=== PATIENT | female | born 1970 ===

== ENCOUNTER 2017-06-12 11:12 | Emergency (ER) | payer OTHER ==
--- NOTE | 2017-06-12 11:38 | C.PDOC ---
History Of Present Illness 47-year-old female with PMHx of sciatica presents to the ED for evaluation of right flank pain which began last night. Patient states her pain radiates to her RUQ and RLQ, and is associated with nausea and decreased appetite. She also reports chills. Patient states she initially suspected her symptoms were caused by sciatica, and took Flexeril but found no relief. Otherwise, she denies fever , vomiting, dyrusia, hematuria. Time Seen by Provider: 06/12/17 11:34 Chief Complaint (Nursing): Abdominal Pain History Per: Patient History/Exam Limitations: no limitations Onset/Duration Of Symptoms: Hrs Current Symptoms Are (Timing): Still Present Severity: Severe Radiation Of Pain To:: Flank (right) Quality Of Discomfort: "Pain" Associated Symptoms: Chills, Nausea. denies: Fever, Vomiting, Diarrhea, Urinary Symptoms (dysuria, hematuria ) Last Bowel Movement: Yesterday Additional History Per: Patient Abnormal Vaginal Bleeding: No Past Medical History Reviewed: Historical Data, Nursing Documentation, Vital Signs Vital Signs: Last Vital Signs Temp 97.7 F 06/12/17 13:30 Pulse 63 06/12/17 13:30 Resp 17 06/12/17 13:30 BP 125/83 06/12/17 13:30 Pulse Ox 98 06/12/17 14:05 - Medical History PMH: Hypercholesterolemia, Hypothyroidism, Migraine, Seizures Surgical History: No Surg Hx Family History: States: Unknown Family Hx Review Of Systems Constitutional: Positive for: Chills Respiratory: Positive for: Cough. Negative for: Shortness of Breath Gastrointestinal: Positive for: Nausea. Negative for: Vomiting, Diarrhea Genitourinary: Negative for: Dysuria, Hematuria Musculoskeletal: Positive for: Other (right flank pain ) Physical Exam - Physical Exam Appears: Non-toxic, No Acute Distress, Other (uncomfortable) Skin: Normal Color, Warm, Dry Head: Atraumatic, Normacephalic Eye(s): bilateral: Normal Inspection, EOMI Nose: Normal Oral Mucosa: Moist Neck: Normal ROM, Supple Chest: Symmetrical, No Deformity, No Tenderness Cardiovascular: Rhythm Regular, No Murmur Respiratory: Normal Breath Sounds, No Rales, No Rhonchi, No Wheezing Gastrointestinal/Abdominal: Soft, Tenderness (mild RUQ) Back: Other (right flank tenderness ) Extremity: Normal ROM, Capillary Refill (less than 2 seconds ) Neurological/Psych: Oriented x3, Normal Speech Gait: Steady ED Course And Treatment - Laboratory Results Result Diagrams: 06/12/17 11:51 06/12/17 11:51 Lab Interpretation: No Acute Changes O2 Sat by Pulse Oximetry: 98 (on RA) Pulse Ox Interpretation: Normal - CT Scan/US CT Abdomen Other Rad Studies (CT/US): Interpreted By Me, Read By Radiologist, Radiology Report Reviewed CT/US Interpretation: PROCEDURE: CT Abdomen and Pelvis with contrast. HISTORY : Abdominal pain. COMPARISON: None. TECHNIQUE: Contrast dose: 100 mL Visipaque. Radiation dose: Total exam DLP = 1106.78 mGy-cm. This CT exam was performed using one or more of the following dose reduction techniques: Automated exposure control, adjustment of the mA and/or kV according to patient size, and/or use of iterative reconstruction technique. FINDINGS: LOWER THORAX : The lung bases are clear. LIVER: The liver is normal in size and there is homogeneous enhancement. No gross lesion or ductal dilatation. GALLBLADDER AND BILE DUCTS: No calcified gallstones. PANCREAS: The pancreas is normal in size and there is homogeneous enhancement. No gross lesion or ductal dilatation. SPLEEN: The spleen is normal in size and there is homogeneous enhancement. ADRENALS: Both adrenal glands are normal in size without discrete nodule. KIDNEYS AND URETERS: Both kidneys are normal in size without hydronephrosis or focal mass. VASCULATURE: No aortic aneurysm. BOWEL: The small bowel loops are normal in caliber. There is large amount of stool in the colon and rectum. No bowel dilatation or obstruction. APPENDIX: Normal appendix. PERITONEUM: There is a small amount of free fluid in the pelvis which may be physiologic. No free air. LYMPH NODES: No enlarged lymph nodes. BLADDER: Unremarkable. REPRODUCTIVE: Unremarkable. BONES: No acute fracture. There is desiccation of the L2-3 disc. OTHER FINDINGS: None. IMPRESSION: No acute abdominal or pelvic abnormality. Constipation. No evidence of bowel obstruction. Medical Decision Making Medical Decision Making: Impression: 47 y/o female with right flank pain radiating to groin Plan: * labs * CT A/P * Morphine IV * Pepcid IV * Toradol IV * IV Fluids * reassess and disposition Progress: labs and CT A/P ordered and reviewed. Patient received Morphine IV, Pepvic IV, Toradol IV, and IV Fluids. CT showed No acute abdominal or pelvic abnormality. Constipation. No evidence of bowel obstruction. On re-evaluation, patient reports pain is improving. She has no fever and abdomen is soft. Vital signs stable. Patient given copy of CT report and labs. Advise patient to follow up with PCP for further evaluation or return to hospital for any worsening symptoms. Disposition Counseled Patient/Family Regarding: Need For Followup, Rx Given - Disposition Referrals: Bunny Wheeler MD [Medical Doctor] - Disposition: HOME/ ROUTINE Disposition Time: 14:00 Condition: STABLE Additional Instructions: Please follow up with your primary doctor for further evaluation Take pain medicine as needed Return to the emergency department at any time if symptoms persist or worsen. Prescriptions: traMADol [Ultram] 50 mg PO Q8 PRN #14 tab PRN Reason: Pain, Severe (8-10) Instructions: Flank Pain (ED) Forms: [employer] (Jamaican) - POA Present On Arrival: None - Clinical Impression Clinical Impression: Flank pain - PA / GATE AGENT / Resident Statement MD/DO has reviewed & agrees with the documentation as recorded. - Scribe Statement The provider has reviewed the documentation as recorded by the Scribe All medical record entries made by the Scribe were at my direction and personally dictated by me. I have reviewed the chart and agree that the record accurately reflects my personal performance of the history, physical exam, medical decision making, and the department course for this patient. I have also personally directed, reviewed, and agree with the discharge instructions and disposition.
[2017-06-12] MEDS ORDERED: Sodium Chloride 0.9% 1,000 ML IV ONE (11:47)
[2017-06-12] MEDS ORDERED: Sodium Chloride 0.9% 1,000 ML ONE (11:57)
[2017-06-12 11:59] LABS: BASO # 0.1 K/uL (0.0-0.2); BASO % 1.2 % (0.0-2.0); EOS # 0.2 K/uL (0.0-0.7); HEMATOCRIT 41.3 % (34.0-47.0); LYMPH # 2.2 K/uL (1.0-4.3); LYMPH % 26.9 % (20.0-40.0); MEAN CELL VOLUME 89.3 fL (81.0-99.0); MEAN CORPUSCULAR HEMOGLOBIN 30.4 pg (27.0-31.0); MEAN CORPUSCULAR HGB CONC 34.1 g/dL (33.0-37.0); MEAN PLATELET VOLUME 7.9 fL (7.2-11.7); MONO # 0.6 K/uL (0.0-0.8); MONO % 7.5 % (0.0-10.0); NRBC % 0.1 % (0.0-2.0); RED CELL DISTRIBUTION WIDTH 12.4 % (11.5-14.5); WHITE BLOOD COUNT 8.1 K/uL (4.8-10.8)
[2017-06-12 12:03] LABS: RBC URINE < 1 /hpf (0-3); URINE BACTERIA RARE (<OCC); URINE BILIRUBIN NEGATIVE (NEGATIVE); URINE BLOOD 1+ (NEGATIVE); URINE COLOR Straw (YELLOW); URINE GLUCOSE (UA) NORMAL (Normal); URINE KETONE NEGATIVE (NEGATIVE); URINE LEUKOCYTE ESTERASE NEG Leu/uL (Negative); URINE PROTEIN NEGATIVE (NEGATIVE); URINE UROBILINOGEN NORMAL mg/dL (0.2-1.0); WBC URINE < 1 /hpf (0-5)
[2017-06-12 12:11] LABS: CHLORIDE 98 mmol/L (98-107); POTASSIUM 3.9 mmol/L (3.6-5.2); SODIUM 138 mmol/L (132-148)
[2017-06-12 12:13] LABS: GFR AFRICAN-AMERICAN > 60
[2017-06-12 12:14] LABS: ALB/GLOB RATIO 1.1 (1.0-2.1); ALKALINE PHOSPHATASE 71 U/L (38-126); ALT/SGPT 24 U/L (9-52); AST/SGOT 17 U/L (14-36); BILIRUBIN,TOTAL 0.5 mg/dL (0.2-1.3); BLOOD UREA NITROGEN 9 mg/dL (7-17); CALCIUM 9.4 mg/dl (8.6-10.4); CARBON DIOXIDE 28 mmol/L (22-30); GLUCOSE,RANDOM 77 mg/dL (65-105); TOTAL PROTEIN 7.7 g/dL (6.3-8.3)
[2017-06-12] MEDS ORDERED: Iodixanol 320 MG/ML 100 ML BOTTLE IV ONE (12:29)
[2017-06-12 13:31] VITALS: BP 125/83; PULSE 63; RESP 17; TEMP 97.7
[2017-06-12] MEDS ORDERED: Morphine 4 MG/ML VIAL ONE (13:33)
[2017-06-12 13:36] VITALS: O2SAT 98
--- NOTE | 2017-06-12 13:48 | CT ---
PROCEDURE: CT Abdomen and Pelvis with contrast HISTORY: Abdominal pain COMPARISON: None. TECHNIQUE: Contrast dose: 100 mL Visipaque Radiation dose: Total exam DLP = 1106.78 mGy-cm. This CT exam was performed using one or more of the following dose reduction techniques: Automated exposure control, adjustment of the mA and/or kV according to patient size, and/or use of iterative reconstruction technique. FINDINGS: LOWER THORAX: The lung bases are clear. LIVER: The liver is normal in size and there is homogeneous enhancement. No gross lesion or ductal dilatation. GALLBLADDER AND BILE DUCTS: No calcified gallstones. PANCREAS: The pancreas is normal in size and there is homogeneous enhancement. No gross lesion or ductal dilatation. SPLEEN: The spleen is normal in size and there is homogeneous enhancement. ADRENALS: Both adrenal glands are normal in size without discrete nodule. KIDNEYS AND URETERS: Both kidneys are normal in size without hydronephrosis or focal mass. VASCULATURE: No aortic aneurysm. BOWEL: The small bowel loops are normal in caliber. There is large amount of stool in the colon and rectum. No bowel dilatation or obstruction. APPENDIX: Normal appendix. PERITONEUM: There is a small amount of free fluid in the pelvis which may be physiologic. No free air. LYMPH NODES: No enlarged lymph nodes. BLADDER: Unremarkable. REPRODUCTIVE: Unremarkable. BONES: No acute fracture. There is desiccation of the L2-3 disc. OTHER FINDINGS: None. IMPRESSION: No acute abdominal or pelvic abnormality. Constipation. No evidence of bowel obstruction.
== END 2017-06-12 15:18 | disposition home or self-care (01) ==
LOC: C.ER 11:12
DX: R10.11 Right upper quadrant pain (principal)
CPT/HCPCS: 74177; 80053; 81001; 83690; 84703; 85025; 96361; 96372; 96374; 96375; 99285; J1885; J2270; J2405; J7040; Q9967